=== PATIENT | female | born 1950 | race Caucasian/White ===

== ENCOUNTER 2023-07-11 11:32 | Emergency (ER) | payer MEDICARE, SELFPAY ==
[2023-07-11 11:36] VITALS: BP 126/60; PULSE 61; RESP 18; TEMP 36.8; O2SAT 98; BMI 24.9
--- NOTE | 2023-07-11 15:40 | W.ED.CHARTNO ---
ED Chart Note Chart Note Details Date: 07/11/23 Details: Patient left without being seen by provider
== END 2023-07-11 14:05 | disposition left against medical advice (07) ==
PROVIDERS: Emergency Provider Student in an Organized Health Care Education/Training Program
DX: Z53.21 Procedure and treatment not carried out due to patient leaving prior to being seen by health care provider (principal)

== ENCOUNTER 2023-08-13 12:06 | Emergency (ER) | payer MEDICARE, SELFPAY ==
[2023-08-13 12:16] VITALS: BP 179/94; PULSE 75; RESP 16; TEMP 36; O2SAT 95; BMI 25.7
--- NOTE | 2023-08-13 12:41 | XR_ITS ---
Patient: CRISPIN POWELL Facility:?[facility] Patient ID:?[id number] Site Patient ID:?[id number]. Site :?[id number] Study:?XRay-Extremity Left HUMERUS 2V-08/13/2023 12:54:33 PM Ordering Physician:BRIDGER Final Report: Indication: Trauma. Technique: Left humerus, 2 views. Comparison: None. Findings/Impression: Bones: Acute displaced proximal humeral neck fracture. Joint spaces: Associated joint effusion. Soft tissues: Associated soft tissue swelling. Dictated by Erick Villasenor MD @ 08/13/2023 1:21:45 PM Signed by:?Erick Villasenor MD @08/13/2023 1:21:45 PM (Electronic Signature)
--- NOTE | 2023-08-13 12:43 | ED_ITS ---
HPI - Extremity Injury (Upper) General Chief Complaint: Extremity Pain/Injury, Upper Stated Complaint: Fell Tuesday, L arm injured Time Seen by Provider: 08/13/23 12:09 History of Present Illness HPI narrative: This 73-year-old female comes in with an injury to her left upper arm that occ urred 5 days ago. She was walking the dog when the dog lunged causing her to fall and land on her right upper extremity. She does not report any other injury but comes in today stating that she can not lift her left arm and is not sleeping well at night. She has bruising occupying much of her left upper arm. She reports pain primarily in the proximal humerus. She does not have any other injury. She does not take any anticoagulants. She states that she did have a bleeding duodenal ulcer that was treated about 3 or 4 weeks ago. This occurred because she had been taking Aleve. Now she is taking Tylenol but not getting much pain relief. Related Data Home Medications Medication Instructions Recorded Confirmed amlodipine 5 mg tablet 5 mg PO DAILY 07/11/23 07/11/23 bupropion HCl 150 mg tablet,12 hr 150 mg PO BID 07/11/23 07/11/23 sustained-release metformin 500 mg tablet,extended 1,500 mg PO QPM 07/11/23 07/11/23 release 24 hr metoprolol tartrate 50 mg tablet 50 mg PO BID 07/11/23 07/11/23 paroxetine HCl 30 mg tablet 30 mg PO DAILY 07/11/23 07/11/23 pravastatin 40 mg tablet 40 mg PO DAILY 07/11/23 07/11/23 Previous Rx's Medication Instructions Recorded hydrocodone 5 mg-acetaminophen 325 1 tab PO Q4-6H PRN pain #20 tabs 08/13/23 mg tablet Allergies Allergy/AdvReac Type Severity Reaction Status Date / Time codeine Allergy Intermediate Verified 07/11/23 11:43 naproxen Allergy Unknown Verified 08/13/23 12:21 Review of Systems Status of ROS: Reports: 10 or more systems reviewed and unremarkable except as noted in History and below Narrative: Constitutional: No fevers, no weight gain or loss. Eyes: No discharge. No vision changes. HENT: No congestion, no sore throat, no ear pain. Cardiovascular: No chest pain, no palpitations. Respiratory: No shortness of breath, no wheezes, no cough. Gastrointestinal: No abdominal pain, no vomiting, no diarrhea. Genitourinary: No dysuria, no hematuria. Musculoskeletal: Left upper extremity injury as described above. Skin: No rashes, no pruritis. Neurological: No dizziness, weakness, sensory change, speech change. Endo/Heme/Allergies: No bruising or bleeding. No polydipsia. Pysch: no suicidality, no anxiety, no insomnia. All other systems reviewed and are negative. PFSH PFSH Social History Smoking Status: Never smoker How often do you have a drink containing alcohol: never How often do you have six or more drinks on one occasion: Never AUDIT-C Alcohol total score: 0 Non-prescribed substance use: denies use Exam Narrative: Exam Narrative: Constitutional: Well-developed, well-nourished, no acute distress. HEENT: Normocephalic, atraumatic. Neck: Normal range of motion. Nontender. Supple. Heart: Regular. No murmurs. Normal rate. Intact distal pulses. Lungs: Clear to auscultation. No chest discomfort. No wheezes, rhonchi, or rales. Abdomen: Normal bowel sounds. Nontender. No rebound tenderness. Genitalia: Deferred. Back: No midline tenderness. Normal range of motion. Extremities: Bruising throughout the left upper arm with tenderness at the proximal humerus. She is unable to raise her arm due to pain and disability. Skin: Intact. No rash. Warm. No erythema or pallor. Neurologic: No altered sensation. No weakness. Alert and oriented. Psychiatric: No suicidality. No anxiety or depression. No insomnia. Nursing notes and vitals signs are reviewed. Const: Vital Signs, click to edit/add: Vital Signs - 24 hr 08/13/23 12:16 Temperature 96.8 F L Pulse Rate [Pulse Oximeter] 75 Respiratory Rate 16 Blood Pressure [[facility] Upper Arm] 179/94 H Pulse Oximetry 95 Oxygen Delivery Me thod Room Air Course Vital Signs Vital signs: Initial Vital Signs Temperature 96.8 F L 08/13/23 12:16 Temperature Source Temporal Artery Scan 08/13/23 12:16 Pulse Rate 75 08/13/23 12:16 Respiratory Rate 16 08/13/23 12:16 Blood Pressure 179/94 H 08/13/23 12:16 Blood Pressure Mean 122 H 08/13/23 12:16 Blood Pressure Position Sitting 08/13/23 12:16 Pulse Oximetry 95 08/13/23 12:16 Oxygen Delivery Method Room Air 08/13/23 12:16 Vital Signs Temperature 96.8 F L 08/13/23 12:16 Pulse Rate 75 08/13/23 12:16 Respiratory Rate 16 08/13/23 12:16 Blood Pressure 179/94 H 08/13/23 12:16 Pulse Oximetry 95 08/13/23 12:16 Oxygen Delivery Method Room Air 08/13/23 12:16 Temperature 96.8 F L 08/13/23 12:16 Pulse Rate 75 08/13/23 12:16 Respiratory Rate 16 08/13/23 12:16 Blood Pressure 179/94 H 08/13/23 12:16 Pulse Oximetry 95 08/13/23 12:16 Oxygen Delivery Method Room Air 08/13/23 12:16 MDM - Extremity Injury (Upper) MDM Narrative Medical decision making narrative: This patient has an injury to her left upper extremity an x-ray images show a fracture of the proximal humerus. The patient was placed in a sling and a prescription for Mchenry is provided. She is instructed to follow-up with orthopedic clinic for further evaluation and treatment. Imaging Data XR L Humerus: Radiologist's impression: Findings/Impression: Bones: Acute displaced proximal humeral neck fracture. Joint spaces: Associated joint effusion. Soft tissues: Associated soft tissue swelling. Discharge Plan Discharge Clinical Impression: Fracture of humerus Patient Disposition: Home, Self-Care Condition: Unchanged Additional Instructions: Wear sling and use medication as needed and directed for pain. Follow-up with orthopedic clinic. Call for appointment by dialing [phone]. Prescriptions: New hydrocodone-acetaminophen 5-325 mg tablet 1 tab PO Q4-6H PRN (Reason: pain) Qty: 20 0RF No Action bupropion HCl 150 mg tablet sustained-release 12 hr 150 mg PO BID pravastatin 40 mg tablet 40 mg PO DAILY amlodipine 5 mg tablet 5 mg PO DAILY paroxetine HCl 30 mg tablet 30 mg PO DAILY metoprolol tartrate 50 mg tablet 50 mg PO BID metformin 500 mg tablet extended release 24 hr 1,500 mg PO QPM Follow Up/Referrals: Provider,Not a Local [Referring] - Stand Alone Forms: [facility] Info Instructions
== END 2023-08-13 13:44 | disposition home or self-care (01) ==
PROVIDERS: Emergency Provider Emergency Medicine Emergency Medical Services; PCP Family Medicine
DX: S42.202A Unspecified fracture of upper end of left humerus, initial encounter for closed fracture (principal); W18.39XA Other fall on same level, initial encounter; Y93.K1 Activity, walking an animal
CPT/HCPCS: 73060; 99283; 99284

== ENCOUNTER 2024-02-07 09:37 | Outpatient (RCR) | payer MEDICARE, SELFPAY ==
--- NOTE | 2024-02-07 12:27 | PT.OPEX ---
PT [place] Outpatient Eval PT [facility] Outpatient Eval Start: 02/07/24 10:14 Freq: Status: Active Protocol: Document 02/07/24 10:14 [facility] (Rec: 02/07/24 11:02 [facility] [id number]) E-signed By Kilo Sanders, PT Physical Therapy Outpatient Evaluation Insurance Information Recert Due Date 05/01/24 Insurance Name Medicare B,[employer] [facility] Medical Diagnosis Left shoulder fracture S42. 292A Treating Diagnosis Left shoulder pain M25.512 Stiffness left shoulder M25.61 Muscle weakness M62.81 Imaging Report Information x-ray (08/18): proximal humeral fracture. Now stable/healing Referring MD Josh Sanches PA-C Subjective Preferred Name Karon Brantley fell and broke her left shoulder (tripped by her dog) August 13, 2023. She had immediate pain but did not go to the doctor for a week hoping it would get better on her own. It did not. She went to the ED, x-ray showed a humeral head fracture. No surgery performed. Healed with time. Per MD order, has a varus deformity. Aggravating: heavy lifting, overhead reach/reach out to the side, opening door of car, reaching into fridge PMH: diabetes, R JOLLY, arthrtis Pain Comments mild aching at night - Tylenol takes care of it Date of Last Physician Visit 12/22/23 Current Work Status Retired Precautions Therapy Limitations/Systems Review Not Limited Objective Other/Pertinent Objective ROM: R Shoulder; WNL L shoulder: Active/ Passive Flexion: 105 / 145 deg Abduction: 90 / 160 deg ER: reach to opp scap med border/ 70 deg IR: reach to ~L4/ 80 deg Strength: Left shoulder: Flexion: 4/5 Extension: 4/5 Abduction: 4-/5 ER: 4-/5 IR: 4-/5 Elbow flexion: 4+/5 Elbow extension 4+/5 Functional Test Performed & Score Quick DASH: 9% disability Assessment Assessment/Impression 73 year old female presents with healing/ stable left shoulder proximal humeral fracture s/p trip and fall . She demos impaired left shoulder AROM and strength, PROM is WNL. Pain is minimal, but her daily activities are limited by impaired strength left shoulder. I recommend a few sessions of skilled PT to progress in a left shoulder strengthening HEP. Primary Functional Limitations overhead and out to the side reach, heavy lifting, reach into fridge, pull car door shut Plan of Care Rehabilitation Potential Excellent Physical Therapy Goals In 4-6 weeks, patient will: 1) Be I with HEP to facilitate continued left shoulder strengthening to optimize functional use of left arm 2) Pull car door shut with left arm comfortably/increased ease 3) Reach into fridge to retrieve up to 2# item, pain free 4) Reach behind to wash her back without difficulty Coordination/Communication With Referral Source Treatment Plan/Direct Interventions Neuromuscular Re-ed,Self-Care/ Home Management,Therapeutic Activities,Therapeutic Exercises Direct Interventions Clarification progressive left shoulder Comments strengthening/AROM Frequency/Duration ~1x/ week for 4-6 weeks Patient Will Be Discharged From Therapy Independent w/HEP, Independently Progressing Evaluation Billing Untimed Code Treatment Minutes 25 Complexity Low Certification Information Initial Certification Date 02/07/24 Ending Certification Date 05/01/24 Provider Signature Required Yes Provider Signature Shows Agreement With POC & Medical Necessity Physician NPI Number Write NPI# Here Physician Comment/Change : Physician Signature & Date Requested Please Sign/Date Here
== END 2024-04-20 08:37 | disposition home or self-care (01) ==
PROVIDERS: PCP Family Medicine; Visit Provider Physician Assistant Surgical
DX: S42.292A Other displaced fracture of upper end of left humerus, initial encounter for closed fracture (principal); M25.512 Pain in left shoulder; M25.612 Stiffness of left shoulder, not elsewhere classified; M62.81 Muscle weakness (generalized); Z51.89 Encounter for other specified aftercare
CPT/HCPCS: 97110; 97161